=== PATIENT | male | born 1975 | race Caucasian/White ===

== ENCOUNTER 2018-10-12 02:38 | Emergency (ER) | payer BC, OTHER ==
[~2018-10-12] VITALS: Ht 188 cm; Wt 153.7 kg
[2018-10-12 02:52] VITALS: Ht 188 cm; Wt 153.7 kg
[2018-10-12] MEDS ORDERED: morphine 4 MG/ML VIAL IV STA (03:15)
[2018-10-12] MEDS ORDERED: ONDANSETRON 4 MG INJ IV STA (03:15)
[2018-10-12] MEDS ORDERED: METOPROLOL 5 MG INJ IV STA (03:15)
[2018-10-12] MEDS ORDERED: ACETAMINOPHEN 325 MG TAB PO PRN ×2 (05:00→05:30)
[2018-10-12] MEDS ORDERED: ONDANSETRON 4 MG INJ IV PRN ×2 (05:00→05:30)
--- NOTE | 2018-10-12 05:01 | ERD ---
ER Documentation Chief Complaint Chief Complaint CP, ELEVATED BP X'S 1 DAY HPI Is a 43-year-old male here with chest pain with elevated blood pressure for 1 day. Denies any fevers chills nausea vomiting. Pain is mild to moderate in tensity. Denies any shortness of breath. Denies any current issues. ROS All systems reviewed and are negative except as per history of present illness. Allergies Allergies: Coded Allergies: shellfish derived (Verified Allergy, Unknown, 10/12/18) PMhx/Soc Medical and Surgical Hx: pt denies Surgical Hx History of Surgery: No Anesthesia Reaction: No Hx Neurological Disorder: No Hx Respiratory Disorders: No Hx Cardiac Disorders: Yes (HTN) Hx Psychiatric Problems: No Hx Miscellaneous Medical Probl: No Hx Alcohol Use: No Hx Substance Use: No Hx Tobacco Use: No Smoking Status: Never smoker Physical Exam Vitals Vital Signs Date Temp Pulse Resp B/P (MAP) Pulse Ox O2 O2 Flow FiO2 Time Delivery Rate 10/12/18 97.6 74 18 163/102 97 02:52 (122) Physical Exam Const: No acute distress Head: Atraumatic Eyes: Normal Conjunctiva ENT: Normal External Ears, Nose and Mouth. Neck: Full range of motion. No meningismus. Resp: Clear to auscultation bilaterally Cardio: Regular rate and rhythm, no murmurs Abd: Soft, non tender, non distended. Normal bowel sounds Skin: No petechiae or rashes Back: No midline or flank tenderness Ext: No cyanosis, or edema Neur: Awake and alert Psych: Normal Mood and Affect Result Diagram: 10/12/18 0350 10/12/18 0350 Results 24 hrs Laboratory Tests Test 10/12/18 03:50 White Blood Count 7.6 10^3/ul Red Blood Count 4.71 10^6/ul Hemoglobin 13.3 g/dl Hematocrit 39.9 % Mean Corpuscular Volume 84.7 fl Mean Corpuscular Hemoglobin 28.2 pg Mean Corpuscular Hemoglobin Concent 33.3 g/dl Red Cell Distribution Width 12.3 % Platelet Count 216 10^3/UL Mean Platelet Volume 10.7 fl Immature Granulocytes % 0.800 % Neutrophils % 47.9 % Lymphocytes % 41.7 % Monocytes % 5.8 % Eosinophils % 3.3 % Basophils % 0.5 % Nucleated Red Blood Cells % 0.0 /100WBC Immature Granulocytes # 0.060 10^3/ul Neutrophils # 3.6 10^3/ul Lymphocytes # 3.2 10^3/ul Monocytes # 0.4 10^3/ul Eosinophils # 0.3 10^3/ul Basophils # 0.0 10^3/ul Nucleated Red Blood Cells # 0.0 10^3/ul Sodium Level 142 mmol/L Potassium Level 4.7 mmol/L Chloride Level 103 mmol/L Carbon Dioxide Level 29 mmol/L Anion Gap 10 Blood Urea Nitrogen 14 mg/dl Creatinine 0.83 mg/dl Est Glomerular Filtrat Rate mL/min > 60 mL/min Glucose Level 121 mg/dl Calcium Level 9.1 mg/dl Total Bilirubin 0.6 mg/dl Direct Bilirubin 0.00 mg/dl Indirect Bilirubin 0.6 mg/dl Aspartate Amino Transf (AST/SGOT) 24 IU/L Alanine Aminotransferase (ALT/SGPT) 43 IU/L Alkaline Phosphatase 71 IU/L Troponin I < 0.012 ng/ml B-Type Natriuretic Peptide 75 PG/ML Total Protein 7.1 g/dl Albumin 4.1 g/dl Globulin 3.00 g/dl Albumin/Globulin Ratio 1.36 Current Medications Medications Dose Sig/Kyrie Start Time Status Last (Trade) Ordered Route PRN Stop Time Admin Dose Reason Admin Morphine 4 mg ONCE STAT 10/12/18 DC 10/12/18 Sulfate IV 03:15 03:59 (morphine) 10/12/18 03:17 Ondansetron 4 mg ONCE STAT 10/12/18 DC 10/12/18 HCl (Zofran IV 03:15 03:59 Inj) 10/12/18 03:17 Metoprolol 5 mg ONCE STAT 10/12/18 DC Tartrate IV 03:15 (Lopressor) 10/12/18 03:17 Ondansetron 4 mg ER BRIDGE 10/12/18 HCl (Zofran PRN IV 05:00 Inj) NAUSEA/VOMITI 10/13/18 04:59 NG 650 mg ER BRIDGE 10/12/18 Acetaminophen PRN PO 05:00 (Tylenol .MILD PAIN 10/13/18 04:59 Tab) 1-3 OR TEMP Procedures/MDM EKG: Rate/Rhythm: [Normal Sinus Rhythm] QRS, ST, T-waves: [No changes consistent w/ acute ischemia] Impression: [No evidence of ischemia or arrhythmia] Chest X-ray 1V Interpreted by me: Soft Tissue: No acute abnormalities Bones: No acute abnormalities Mediastinum/Cardiac Silhouette/Lungs: [No acute abnormalities] Patient's symptoms are concerning for cardiac cause will require inpatient workup and continuous monitoring. Further w/u for ischemia, arrhythmia, PE or dissection will be deferred to the inpatient team. Accepting Care Team: Current data and ongoing care discussed. Time: 5 AM Primary Provider: Dr. Stoll Consulting: Deferred to inpatient team Outstanding Data: none Departure Diagnosis: Primary Impression: Chest pain Chest pain type: unspecified Qualified Codes: R07.9 - Chest pain, unspecified Condition: Serious NORBERTO VOGT Oct 12, 2018 05:01
[2018-10-12] MEDS ORDERED: NACL 0.9% 3 ML SYG IV SCH (05:30)
[2018-10-12] MEDS ORDERED: morphine 2 MG INJ IV PRN (05:30)
[2018-10-12] MEDS ORDERED: hydrALAzine 20 MG INJ IV PRN (05:30)
[2018-10-12] MEDS ORDERED: NITROGLYCERIN (SL) 0.4 MG TAB SL PRN (05:30)
[2018-10-12] MEDS ORDERED: DOCUSATE SODIUM 100 MG CAP PO PRN (05:30)
--- NOTE | 2018-10-12 07:17 | HP ---
Date/Time of Note Date/Time of Note DATE: 10/12/18 TIME: 07:11 Assessment/Plan VTE Prophylaxis SCD applied (from Nsg): Yes Pharmacological prophylaxis: NA/contraindicated Pharm contraindication: low risk/ambulating Assessment/Plan Hospital Course This is a 43 year old male being admitted to the telemetry floor for observation for: 1 chest pain: Rule out ACS versus anxiety versus musculoskeletal: We will check a hemoglobin A1c, lipid panel, TSH. Will trend cardiac enzymes, the first that was negative. Patient's EKG does show concerning Q waves in leads V1 to V2. echo in the am. Will consult Dr. Escamilla of cardiology for further evaluation. No caffeine 2. Hypertension: We will resume patient's lisinopril, titrate blood pressure medications as indicated 3. Morbid obesity: We will check hemoglobin A 1C, lipid panel, TSH encourage diet and lifestyle modification 4. DVT GI prophylaxis: SCDs, no GI prophylaxis indicated Further treatment strategy will be implemented as per the clinical course Result Diagram: 10/12/18 0350 10/12/18 0350 Results 24hrs Laboratory Tests Test 10/12/18 03:50 White Blood Count 7.6 Red Blood Count 4.71 Hemoglobin 13.3 L Hematocrit 39.9 L Mean Corpuscular Volume 84.7 Mean Corpuscular Hemoglobin 28.2 L Mean Corpuscular Hemoglobin Concent 33.3 Red Cell Distribution Width 12.3 Platelet Count 216 Mean Platelet Volume 10.7 H Immature Granulocytes % 0.800 H Neutrophils % 47.9 Lymphocytes % 41.7 Monocytes % 5.8 Eosinophils % 3.3 Basophils % 0.5 Nucleated Red Blood Cells % 0.0 Immature Granulocytes # 0.060 H Neutrophils # 3.6 Lymphocytes # 3.2 H Monocytes # 0.4 Eosinophils # 0.3 Basophils # 0.0 Nucleated Red Blood Cells # 0.0 Sodium Level 142 Potassium Level 4.7 Chloride Level 103 Carbon Dioxide Level 29 Anion Gap 10 Blood Urea Nitrogen 14 Creatinine 0.83 Est Glomerular Filtrat Rate mL/min > 60 Glucose Level 121 Hemoglobin A1c 6.8 H Calcium Level 9.1 Total Bilirubin 0.6 Direct Bilirubin 0.00 Indirect Bilirubin 0.6 Aspartate Amino Transf (AST/SGOT) 24 Alanine Aminotransferase (ALT/SGPT) 43 Alkaline Phosphatase 71 Troponin I < 0.012 B-Type Natriuretic Peptide 75 Total Protein 7.1 Albumin 4.1 Globulin 3.00 Albumin/Globulin Ratio 1.36 HPI/ROS Admit Date/Time Admit Date/Time Hx of Present Illness Chief complaint: Left-sided chest pain This is a 43-year-old male with a past medical history of hypertension who presented to the emergency department complaining of chest pain. 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 He reports the pain was sharp but nonradiating. He states that occurred at approximately 9 PM last night. He does report that he notices blood pressure was high at 171. He also experienced shortness of breath. Allergies: Pork, shellfish Medications: Lisinopril 2.5 mg daily ROS Const: As per HPI Eyes : No pain discharge or redness or change in visual acuity ENT: No pain, sore throat, congestion, congestion, dysphagia or discharge Respiratory: No shortness of breath, cough, sputum, wheezing, or pleuritic pain Cardiovascular: N as per HPI GI : no change in appetite, abdominal pain, nausea, vomiting, diarrhea, constipation, or change in the color his stool Genitourinary: No dysuria, hematuria, flank pain , discharge or CVA tenderness Musculoskeletal: No joint pain, back pain, neck pain, restricted range of motion in neck or joints Skin: No rash, bruising or hives Neuro: No headache, dizziness, syncope, seizure, focal weakness Endocrine: No polyuria, polydipsia, temperature intolerance Psych: No hallucination, depression, anxiety or suicidal ideation PMH/Family/Social Past Medical History Hypertension Medications Current Medications Ondansetron HCl (Zofran Inj) 4 mg ER BRIDGE PRN IV NAUSEA/VOMITING; Start 10/12/18 at 05:00; Stop 10/13/18 at 04:59 Acetaminophen (Tylenol Tab) 650 mg ER BRIDGE PRN PO .MILD PAIN 1-3 OR TEMP; Start 10/12/18 at 05:00; Stop 10/13/18 at 04:59 IV Flush (NS 3 ml) 3 ml PER PROTOCOL IV ; Start 10/12/18 at 05:30 Ondansetron HCl (Zofran Inj) 4 mg Q6H PRN IV NAUSEA/VOMITING; Start 10/12/18 at 05:30 Nitroglycerin (Nitroglycerin (Sl Tab) 0.4 Mg) 1 tab Q5M PRN SL .CHEST PAIN; Start 10/12/18 at 05:30 Acetaminophen (Tylenol Tab) 650 mg Q6H PRN PO .PAIN 1-3 OR TEMP; Start 10/12/18 at 05:30 Morphine Sulfate (morphine) 2 mg Q4H PRN IV .PAIN 7-10; Start 10/12/18 at 05:30 Docusate Sodium (Colace) 100 mg Q12H PRN PO .CONSTIPATION; Start 10/12/18 at 05:30 Hydralazine HCl (Apresoline) 10 mg Q4H PRN IV ELEVATED BLOOD PRESSURE; Start 10/12/18 at 05:30 Coded Allergies: shellfish derived (Verified Allergy, Unknown, 10/12/18) Past Surgical History Past Surgical Hx: no surgical history Social History He does report that he vapes Smoking Status: Current some day smoker Drug Use: none Exam/Review of Systems Vital Signs Vitals Vital Signs Date Temp Pulse Resp B/P (MAP) Pulse Ox O2 O2 Flow FiO2 Time Delivery Rate 10/12/18 98.2 63 18 138/84 98 Room Air 06:30 (102) Exam Exam General: Patient is a pleasant male currently lying in bed in no acute distress HEENT: Atraumatic, normocephalic. The pupils are equal, round and reactive. Extraocular motor are intact Neck: Supple with full range of motion. No rigidity or meningismus Chest: Tenderness to palpation over the left chest wall Lungs: Clear to auscultation bilaterally no crackles rales or wheezing Heart: Normal S1-S2, Regular rhythm and rate. No murmur, S3, or S4 Abdomen: Morbidly obese soft , nontender, nondistended , bowel sounds are present. No guarding no rebound tenderness , No masses or organomegaly. No costovertebral temporal angle mass Extremities: Normal to inspection, no edema no cyanosis Neurologic: Normal mental status, speech normal, cranial nerves II through XII are intact, motor and sensory are intact, no focal weakness Additional Comments EKG: Normal sinus rhythm at approximately 72 bpm, Q waves noted in V1 and V2 PROCEDURE: XR Chest. CLINICAL INDICATION: Chest TECHNIQUE: 2 AP portable chest images were obtained COMPARISON: None. FINDINGS: The cardiomediastinal silhouette is normal. Pulmonary vasculature is normal. Lungs and costophrenic angles are clear. Degenerative changes thoracic spine. IMPRESSION: No evidence of congestive heart failure or pneumonia. RPTAT:AAJJ Physician Rosy Date Time Electronically viewed and signed by Merry Woodall Physician on 10/12/2018 04:40 BM/ CC: NORBERTO VOGT [id number] FAUSTO LO Oct 12, 2018 07:17
[2018-10-12] MEDS ORDERED: LISI2.5T59 ORAL (07:45)
[2018-10-12] MEDS ORDERED: NAPR-688 ORAL (07:45)
--- NOTE | 2018-10-12 14:02 | PDOCDIS ---
Discharge Instructions DIAGNOSIS Discharge Diagnosis Chest pain CONDITION [id number] Patient Condition: [id number] Stable FOLLOW UP/APPOINTMENTS Follow-up Plan It is very important to eat healthy food and exercise. Avoid sugars and carbohydrates. Your sugars are elevated consistent with possible diabetes, this should be tested in clinic by your primary doctor Return to the hospital if you have any concerning symptoms SOHEILA SANDOVAL MD Oct 12, 2018 14:02
--- NOTE | 2018-10-12 14:05 | DS ---
Date/Time of Note Date/Time of Note DATE: 10/12/18 TIME: 14:03 Discharge Summary Admission/Discharge Info Admit Date/Time Discharge Date/Time Discharge Diagnosis Chest pain Patient Condition: Stable Hospital Course The patient was ruled out for ACS with serial biomarkers and EKGs. He describes constant pain in L chest/breast area. Pain worse with palpation. He says it is alleviated by exercise. Worse with driving his car. His symptoms were not consistent with angina. His wells score was low and did not require consideration of VTE. I suspect this is musculoskeletal chest pain. I advised him on lifelong diet modification to control blood sugar and continued adherence to blood pressure regimen. I encouraged him to follow up promptly with his PCP and to return to the emergency room if he has any concerning symptoms Home Meds Reported Medications Lisinopril* (Lisinopril*) 2.5 Mg Tablet, 1 TAB ORAL DAILY 10/12/18 Naproxen* (Naproxen*) 500 Mg Tablet, 1 TAB ORAL DAILY PRN for PAIN LEVEL 4-7 10/12/18 Follow-up Plan It is very important to eat healthy food and exercise. Avoid sugars and carbohydrates. Your sugars are elevated consistent with possible diabetes, this should be tested in clinic by your primary doctor Return to the hospital if you have any concerning symptoms Primary Care Provider Not On Staff Doctor Pending Labs Laboratory Tests Test 10/12/18 03:50 10/12/18 08:25 White Blood Count 7.6 10^3/ul (4.8-10.8) Red Blood Count 4.71 10^6/ul (4.70-6.10) Hemoglobin 13.3 g/dl (14.0-18.0) Hematocrit 39.9 % (42.0-52.0) Mean Corpuscular Volume 84.7 fl (82.0-101.0) Mean Corpuscular 28.2 pg (29.0-33.0) Hemoglobin Mean Corpuscular 33.3 g/dl (32.0-37.0) Hemoglobin Concent Red Cell Distribution 12.3 % (11.5-14.5) Width Platelet Count 216 10^3/UL (140-415) Mean Platelet Volume 10.7 fl (7.4-10.4) Immature Granulocytes % 0.800 % (0.001-0.429) Neutrophils % 47.9 % (39.0-77.0) Lymphocytes % 41.7 % (15.0-51.0) Monocytes % 5.8 % (0.0-11.0) Eosinophils % 3.3 % (0.0-7.0) Basophils % 0.5 % (0.0-2.0) Nucleated Red Blood Cells 0.0 /100WBC (0.0-0.0) % Immature Granulocytes # 0.060 10^3/ul (0.0-0.031) Neutrophils # 3.6 10^3/ul (1.6-7.5) Lymphocytes # 3.2 10^3/ul (0.8-2.9) Monocytes # 0.4 10^3/ul (0.3-0.9) Eosinophils # 0.3 10^3/ul (0.0-0.5) Basophils # 0.0 10^3/ul (0.0-0.1) Nucleated Red Blood Cells 0.0 10^3/ul (0.0-0.0) # Sodium Level 142 mmol/L (135-144) Potassium Level 4.7 mmol/L (3.5-5.1) Chloride Level 103 mmol/L (97-110) Carbon Dioxide Level 29 mmol/L (21-31) Anion Gap 10 (5-13) Blood Urea Nitrogen 14 mg/dl (7-20) Creatinine 0.83 mg/dl (0.61-1.24) Est Glomerular Filtrat > 60 mL/min (>60) Rate mL/min Glucose Level 121 mg/dl (70-220) Hemoglobin A1c 6.8 % (0-5.9) Calcium Level 9.1 mg/dl (8.4-10.2) Total Bilirubin 0.6 mg/dl (0.2-1.3) Direct Bilirubin 0.00 mg/dl (0.00-0.20) Indirect Bilirubin 0.6 mg/dl (0-1.1) Aspartate Amino 24 IU/L (15-46) Transf (AST/SGOT) Alanine 43 IU/L (13-69) Aminotransferase (ALT/SGPT ) Alkaline Phosphatase 71 IU/L (42-121) Troponin I < 0.012 < 0.012 ng/ml (0.000-0.120) ng/ml (0.000-0.120) B-Type Natriuretic 75 PG/ML (0-125) Peptide Total Protein 7.1 g/dl (6.1-8.1) Albumin 4.1 g/dl (3.3-4.9) Globulin 3.00 g/dl (1.3-3.2) Albumin/Globulin Ratio 1.36 Triglycerides Level 159 mg/dl (0-149) Cholesterol Level 222 mg/dl (100-200) LDL Cholesterol, 159 mg/dl Calculated HDL Cholesterol 31 mg/dl (27-67) Cholesterol/HDL Ratio 7.1 RATIO Thyroid Stimulating 1.680 MIU/L (0.465-4.680) Hormone (TSH) Creatine Kinase 123 IU/L (23-200) Creatine Kinase Index 0.6 Creatinine Kinase MB 0.71 ng/ml (0.0-2.4) (Mass) SOHEILA SANDOVAL MD Oct 12, 2018 14:05
[2018-10-12 14:14] VITALS: BP 135/89; PULSE 67; RESP 15
--- NOTE | 2018-10-12 18:51 | RADRPT ---
Echocardiogram Report Patient Name: JESSY YAO EPatient ID: [id number] : 1975 (43y 7m)Study Date: 10/12/2018 1:21:07 PM Gender: MAccession #: [id number] Tech: LionelMargo Donato [facility] Location: [facility] Ref.Physician: FAUSTO LO Height(Cm): BSA: Weight(Kg): Quality: Technically Difficult StudyOrder Physician: FAUSTO LO Account #: Procedures: Echocardiographic Report: Transthoracic echocardiogram with complete 2D, M-Mode, and doppler examination. Indications: Chest Pain. Measurements: 2D/M Mode Doppler Measurement Value Normal Range Measurement Value Normal Range LVIDd 2D 4.7 [ 4.2 - 5.8 ] cm AV Peak Augusto 1.5 [ 100.0 - 170.0 ] cm/sec LVIDs 2D 2.4 [ 2.5 - 4.0 ] cm AV Peak PG 9.0 [ 2.0 - 9.0 ] mmHg LVPWd 2D 1.2 [ 0.6 - 1.0 ] cm LVOT Peak Augusto 0.8 [ 70.0 - 110.0 ] cm/sec IVSd 2D 1.1 [ 0.6 - 1.0 ] cm LVOT Peak PG 3.0 [ 2.0 - 6.0 ] mmHg IVS/LVPW 2D 1.0 ratio MV E Peak Augusto 0.8 [ 60.0 - 130.0 ] cm/sec AoR Diam 2D 2.9 [ 2.6 - 3.4 ] cm MV A Peak Augusto 0.9 [ 100.0 - 120.0 ] cm/sec LA/Ao 2D 1 ratio MV E/A 0.9 [ 0.8 - 1.5 ] ratio LA Dimen 2D 3.4 [ 3.0 - 4.0 ] cm MV Decel Time 229 [ 104 - 258 ] msec Lat E` Augusto 0.1 [ 10.0 - 15.0 ] cm/sec MV E/A 0.9 [ 0.8 - 1.5 ] ratio Findings: Left Ventricle: Normal left ventricular systolic function. Normal left ventricular cavity size. Mild concentric left ventricular hypertrophy. Ejection fraction is visually estimated at 60 %. Tissue Doppler/Mitral Doppler indices are consistent with impaired relaxation (Stage I diastolic dysfunction). Right Ventricle: Normal right ventricular size. Normal right ventricular systolic function. Left Atrium: The left atrium is normal in size. Right Atrium: The right atrium is normal in size. Mitral Valve: Normal appearance and function of the mitral valve with trace physiologic regurgitation. Aortic Valve: Normal appearance of the aortic valve. No significant aortic stenosis or insufficiency. Tricuspid Valve: Normal appearance of the tricuspid valve. Unable to obtain RVSP due to minimal presence of tricuspid regurgitation. Pulmonic Valve: Normal pulmonic valve appearance. Pericardium: Normal pericardium with no significant pericardial effusion. Aorta: Normal aortic root. IVC: Normal size and normal respiratory collapse consistent with normal right atrial pressure. Conclusions: Normal left ventricular systolic function. Normal left ventricular cavity size. Mild concentric left ventricular hypertrophy. Ejection fraction is visually estimated at 60 %. Tissue Doppler/Mitral Doppler indices are consistent with impaired relaxation (Stage I diastolic dysfunction). Normal appearance and function of the mitral valve with trace physiologic regurgitation. Normal appearance of the tricuspid valve. Unable to obtain RVSP due to minimal presence of tricuspid regurgitation. Electronically Signed By: Buddy Escamilla 2018-10-12 18:49:55 PDT
== END 2018-10-12 14:15 | disposition left against medical advice (07) ==
LOC: E/R 02:38 → SUATTDRO 10:19 → E/R 14:15
PROVIDERS: ATTEND Internal Medicine
DX: R07.9 Chest pain, unspecified (principal); I10 Essential (primary) hypertension
CPT/HCPCS: 36415; 71045; 80053; 80061; 82550; 82553; 83036; 83880; 84443; 84484; 85025; 93005; 93306; 96374; 96375; 99285; J2270; J2405